=== PATIENT | female | born 1985 | race Caucasian/White ===

== ENCOUNTER 2024-01-21 20:55 | Emergency (ER) | payer SELFPAY ==
[~2024-01-21] VITALS: Ht 152.4 cm; Wt 66.3 kg
[2024-01-21 21:08] VITALS: BP 143/103; TEMP 98; O2SAT 100
[2024-01-21 23:43] LABS: DIFFERENTIAL COMMENT 1; HEMATOCRIT. 36.6 % (36.0-48.0); HEMOGLOBIN. 12.3 g/dL (12.0-16.0); MEAN CORPUSCULAR HEMOGLOBIN 26.8 pg (28.0-32.0); MEAN CORPUSCULAR HGB CONC 33.7 g/dL (31.0-37.0); MEAN CORPUSCULAR VOLUME 79.5 fL (81.0-99.0); MEAN PLATELET VOLUME 7.1 fl (7.4-10.4); PLATELET 323 x1000/uL (130-400); RED CELL DISTRIBUTION WIDTH 13.8 % (11.6-14.6); WHITE BLOOD COUNT 13.1 x1000/uL (4.5-11.0)
[2024-01-21 23:49] LABS: CHLORIDE 105 mEq/L (98-107); POTASSIUM 4.1 mEq/L (3.5-5.1); SODIUM 137 mEq/L (136-145)
[2024-01-21 23:50] LABS: CALCIUM 10.4 mg/dL (8.7-10.4); CARBON DIOXIDE 28 mEq/L (21-32)
[2024-01-21 23:55] LABS: CREATININE 0.7 mg/dL (0.6-1.0); GLUCOSE 124 mg/dL (70-105); UREA NITROGEN BLOOD 11 mg/dL (9-23)
[2024-01-22 00:30] LABS: TROPONIN I HIGH SENSITIVITY < 4 ng/L (3.0-34)
[2024-01-22 02:40] VITALS: PULSE 71; RESP 16
[2024-01-22 07:58] LABS: PLATELET ESTIMATE NORMAL
== END 2024-01-22 02:41 | disposition home or self-care (01) ==
LOC: ER 21:21
DX: F41.0 Panic disorder [episodic paroxysmal anxiety] (principal); Z98.890 Other specified postprocedural states
CPT/HCPCS: 36415; 80048; 84484; 85025; 99283

== ENCOUNTER 2025-01-11 14:46 | Emergency (ER) | payer MEDICAID, OTHER ==
[~2025-01-11] VITALS: Ht 167.6 cm; Wt 58.0 kg
[2025-01-11 15:05] VITALS: O2SAT 99
[2025-01-11] MEDS: SODIUM CHLORIDE 0.9% 1,000 ML IV ONE (16:20)
[2025-01-11] MEDS: MAGNESIUM/ALUMINUM HYDROXIDE/SIMETHICONE 30ML UDC PO STA (16:21)
[2025-01-11] MEDS: KETOROLAC 30MG/ML VIAL IV STA (16:22)
[2025-01-11] MEDS: DIPHENHYDRAMINE 50MG/ML VIAL IV ONE (16:22)
[2025-01-11] MEDS: IBUPROFEN 600MG TABLET PO STA (16:22)
[2025-01-11] MEDS: ONDANSETRON HCL 4MG/2ML INJ IV STA (16:22)
[2025-01-11 16:26] LABS: BASOPHILS % 0.5 % (0.0-2.0); DIFFERENTIAL COMMENT 0; EOSINOPHILS % 0.1 % (0.0-5.0); HEMOGLOBIN. 13.1 g/dL (12.0-16.0); LYMPHOCYTES % 12.1 % (20.0-50.0); MEAN CORPUSCULAR HEMOGLOBIN 25.6 pg (28.0-32.0); MEAN CORPUSCULAR HGB CONC 33.5 g/dL (31.0-37.0); MEAN CORPUSCULAR VOLUME 76.4 fL (81.0-99.0); MEAN PLATELET VOLUME 6.9 fl (7.4-10.4); NEUTROPHILS % 83.3 % (40.0-76.0); PLATELET 359 x1000/uL (130-400); RED BLOOD CELL COUNT 5.11 mill/uL (4.2-5.4); RED CELL DISTRIBUTION WIDTH 13.9 % (11.6-14.6)
[2025-01-11 16:29] LABS: CLARITY URINE CLEAR (CLEAR); COLOR URINE YELLOW (YELLOW); GLUCOSE URINE NEGATIVE (NEGATIVE); KETONES URINE 1+ (NEGATIVE); LEUKOCYTE ESTERASE URINE 1+ (NEGATIVE); NITRITE URINE NEGATIVE (NEGATIVE); OCCULT BLOOD URINE 3+ (NEGATIVE); PH URINE 6.5 (4.5-8.0); PROTEIN URINE TRACE (NEGATIVE); SPECIFIC GRAVITY URINE 1.014 (1.005-1.030); UROBILINOGEN URINE 0.2 E.U./dL (0.2-1.0)
[2025-01-11 16:33] LABS: CARBON DIOXIDE 28 mEq/L (21-32); CHLORIDE 105 mEq/L (98-107); POTASSIUM 3.6 mEq/L (3.5-5.1); SODIUM 137 mEq/L (136-145)
[2025-01-11 16:34] LABS: CALCIUM 9.9 mg/dL (8.7-10.4)
[2025-01-11 16:38] LABS: CREATININE 0.8 mg/dL (0.6-1.0)
[2025-01-11 16:39] LABS: GLUCOSE 129 mg/dL (70-105); UREA NITROGEN BLOOD 11 mg/dL (9-23)
[2025-01-11 16:40] LABS: ALANINE AMINOTRANSFERASE 14 IU/L (10-49); ALBUMIN 4.8 g/dL (3.2-4.8); ASPARTATE AMINOTRANSFERASE 13 IU/L (<34)
[2025-01-11 16:41] LABS: BILIRUBIN DIRECT 0.1 mg/dL (<=3.0); BILIRUBIN TOTAL 0.4 mg/dL (0.1-1.0); PROTEIN TOTAL 7.5 g/dL (6.0-8.3)
[2025-01-11 16:42] LABS: HCG SCREEN NEGATIVE
[2025-01-11 16:55] LABS: BACTERIA URINE 2+; RBC URINE 15-25 /hpf (0-2); SQUAMOUS EPITHELIAL CELL URINE 1+ /lpf (RARE/1+)
[2025-01-11] MEDS: CEFTRIAXONE 1GM/50ML 50 ML IV ONE (21:49)
[2025-01-11 21:51] VITALS: BP 135/89; PULSE 64; RESP 20; TEMP 36.2; O2SAT 100
== END 2025-01-11 21:51 | disposition short-term general hospital (02) ==
LOC: ER 15:01 → CANBEDREQ 19:30 → ER 21:51
DX: N12 Tubulo-interstitial nephritis, not specified as acute or chronic (principal); I10 Essential (primary) hypertension; M54.50 Low back pain, unspecified
CPT/HCPCS: 80076; 80048; 81003; 81025; 84703; 83690; 85025; 87040; 36415; 71045; 74176; 93005; 96361; 96365; 96375; 99285; J0696; J1200; J1885; J2405; J7030; Z7610 ×3